=== PATIENT | male | born 1970 | race Caucasian/White ===

== ENCOUNTER 2017-03-28 23:15 | Emergency (ER) | payer MEDICARE, MEDICAID ==
[~2017-03-28] VITALS: Ht 172.7 cm; Wt 90.7 kg
[2017-03-28] MEDS: ASPIRIN 81 MG TAB.CHEW PO ONE (23:27)
[2017-03-28] MEDS ORDERED: ASPIRIN 81 MG TAB.CHEW ONE (23:42)
[2017-03-28 23:46] LABS: BASOPHILS # (AUTO) 0.1 K/uL (0.0-8.0); BASOPHILS % (AUTO) 1.6 % (0.0-2.0); EOSINOPHILS # (AUTO) 0.3 K/uL (0.0-0.7); EOSINOPHILS % (AUTO) 3.6 % (0.0-7.0); LYMPHOCYTES # (AUTO) 2.5 K/UL (0.8-4.8); LYMPHOCYTES % (AUTO) 33.1 % (20.5-51.5); MEAN CORPUSCULAR HEMOGLOBIN 28.7 UUG (27.0-31.0); MEAN CORPUSCULAR HGB CONC 33 g/dL (32.0-37.0); MONOCYTES # (AUTO) 0.8 K/UL (0.1-1.30); MONOCYTES % (AUTO) 10.8 % (0.0-11.0); NEUTROPHILS # (AUTO) 3.8 K/UL (1.8-8.9); NEUTROPHILS % (AUTO) 50.9 % (38.5-71.5); PLATELET COUNT (AUTO) 342 K/UL (150-450); RED BLOOD CELL COUNT(AUTO) 4.88 MIL/UL (4.7-6.1); WHITE BLOOD COUNT (AUTO) 7.5 K/UL (4.0-11.2)
[2017-03-28 23:55] LABS: POTASSIUM 3.9 mmol/L (3.5-5.1)
--- NOTE | 2017-03-29 00:18 | NUR ---
Patient given written and verbal discharge instructions. Patient verbalizes understanding of instructions. Patient is ambulatory with steady gait. Refuses offer of jail placement. Patient given list of available shelters in surrounding area.
== END 2017-03-29 00:30 | disposition home or self-care (01) ==
LOC: ER 23:17
DX: R05 Cough (principal); Z59.0 Homelessness; F17.210 Nicotine dependence, cigarettes, uncomplicated; F20.9 Schizophrenia, unspecified; R79.89 Other specified abnormal findings of blood chemistry
CPT/HCPCS: 36415; 71010; 80048; 83880; 84484; 85025; 93005; 99285; 99406; A4663; 70030-TC

== ENCOUNTER 2017-03-29 05:01 | Emergency (ER) | payer MEDICARE, MEDICAID ==
--- NOTE | 2017-03-29 05:37 | NUR ---
PATIENT REFUSED TO BE TRIAGED AND SEEN BY MD. PATIENT LEFT WITHOUT BEING TRIAGE OR SEEN BY ERMD
== END 2017-03-29 05:39 | disposition left against medical advice (07) ==
LOC: ER 05:03
DX: Z53.21 Procedure and treatment not carried out due to patient leaving prior to being seen by health care provider (principal)

== ENCOUNTER 2017-04-19 13:53 | Emergency (ER) | payer MEDICARE, MEDICAID ==
[~2017-04-19] VITALS: Ht 172.7 cm; Wt 108.9 kg
[2017-04-19] MEDS ORDERED: [UNRECOGNIZED DRUG - REMARK] (13:59)
--- NOTE | 2017-04-19 15:00 | NUR ---
Pt is sleeping with eyes closed and no s/s of distress noted.
[2017-04-19 15:06] LABS: CREATININE 0.9 mg/dL (0.6-1.3); POTASSIUM 4.1 mmol/L (3.5-5.1)
[2017-04-19 15:19] LABS: BILIRUBIN,DIRECT 0.1 mg/dL (0.0-0.2); BILIRUBIN,TOTAL 0.4 mg/dL (0.2-1.0); TOTAL PROTEIN, SERUM 6.7 g/dL (6.4-8.2)
--- NOTE | 2017-04-19 15:35 | NUR ---
Pt stated " I have to go now " and ambulated out of ER with steady gait.
--- NOTE | 2017-04-19 15:45 | NUR ---
ER physician notified.
== END 2017-04-19 15:45 | disposition left against medical advice (07) ==
LOC: ER 13:53
DX: R07.9 Chest pain, unspecified (principal); Z59.0 Homelessness; F20.9 Schizophrenia, unspecified
CPT/HCPCS: 36415; 70030-TC; 71010; 93005; A4663